=== PATIENT | female | born 1950 | race Caucasian/White ===

== ENCOUNTER 2016-09-14 16:50 | Emergency (ER) | payer MEDICARE ==
[~2016-09-14] VITALS: Ht 163.8 cm; Wt 96.2 kg
[2016-09-14] MEDS ORDERED: MORPHINE SULFATE 10 MG/ML VIAL. IM ONE (18:30)
[2016-09-14] MEDS ORDERED: DEXAMETHASONE SOD PHOS 20 MG/5 ML VIAL. IM ONE (18:30)
[2016-09-14] MEDS ORDERED: DIAZEPAM 5 MG TABLET PO ONE (18:30)
[2016-09-14] MEDS ORDERED: KETOROLAC TROMETHAMINE 60 MG/2 ML SYRINGE. IM ONE (18:30)
[2016-09-14] MEDS ORDERED: HYDR-2762 PO (18:34)
[2016-09-14] MEDS ORDERED: DIAZ5TAB PO (18:34)
[2016-09-14] MEDS ORDERED: METH4TAB2 PO (18:34)
--- NOTE | 2016-09-14 18:35 | PHYS DOC ---
Adult General Chief Complaint Chief Complaint: BACK PAIN OR INJURY HPI HPI Patient is a 66 year old female who presents today complaining of moderate left low back pain that began a couple days ago when she was turning in bed. Patient denies any known injury. She states she has history of back pain and has tried taking hydrocodone with no relief. Patient denies any loss of bowel/ bladder function or pain radiating to the right of the left lower extremity. Review of Systems Review of Systems Constitutional: Denies fever or chills [] Eyes: Denies change in visual acuity, redness, or eye pain [] Musculoskeletal: Back pain Integument: Denies rash or skin lesions [] Neurologic: Denies headache, focal weakness or sensory changes [] Endocrine: Denies polyuria or polydipsia [] Current Medications Current Medications Current Medications Medications (Trade) Dose Ordered Sig/Roney Start Time Stop Time Status Last Admin Dose Admin Dexamethasone Sodium Phosphate (Decadron) 10 mg 1X ONCE 09/14/16 18:30 09/14/16 18:34 DC Diazepam (Valium) 5 mg 1X ONCE 09/14/16 18:30 09/14/16 18:34 DC Ketorolac Tromethamine (Toradol Im) 60 mg 1X ONCE 09/14/16 18:30 09/14/16 18:34 DC Morphine Sulfate 5 mg 1X ONCE 09/14/16 18:30 09/14/16 18:34 DC Allergies Allergies Allergies Coded Allergies Type Severity Reaction Last Updated Verified lisinopril Allergy Mild 09/14/16 Yes sumatriptan Allergy Unknown 09/14/16 Yes Physical Exam Physical Exam Constitutional: Well developed, well nourished, no acute distress, non-toxic appearance. [] Abdomen: Bowel sounds normal, soft, no tenderness, no masses, no pulsatile masses. [] Skin: Warm, dry, no erythema, no rash. [] Back: Diffuse tenderness to paraspinal muscles of the right low lumbar region no midline tenderness, no CVA tenderness. Positive right leg straight raises. Extremities: No tenderness, no cyanosis, no clubbing, ROM intact, no edema. [] Neurologic: Alert and oriented X 3, normal motor function, normal sensory function, no focal deficits noted. [] Psychologic: Affect normal, judgement normal, mood normal. [] EKG EKG [] Radiology/Procedures Radiology/Procedures [] Course & Med Decision Making Course & Med Decision Making Pertinent Labs and Imaging studies reviewed. (See chart for details) Patient is in the ED with back pain with sciatica. She has tried hydrocodone with no relief. I give her morphine, Decadron, Toradol, and vitamin the ED. Discharge her with short supply of hydrocodone 7.5 mg, Valium, and Medrol Dosepak. She has an appointment with her PCP on Friday. She was provided return precautions and discharged in stable condition. Dragon Disclaimer Dragon Disclaimer This electronic medical record was generated, in whole or in part, using a voice recognition dictation system. Departure Departure Impression: Primary Impression: Back pain Additional Impression: Sciatica, right side Disposition: HOME, SELF-CARE Condition: STABLE Referrals: UNKNOWN PCP NAME (PCP) Follow-up with your doctor on Friday as scheduled Patient Instructions: Back Pain, Adult Additional Instructions: You were seen for back pain. Take the prescribed medicines as ordered. Follow- up with your doctor on Friday. You can apply heat to your back or ice. Come back to the ED for worsening condition or if you have any loss of bowel/bladder function. Scripts Hydrocodone Bit/Acetaminophen (Hydrocodone-Apap 7.5-325 )1 Each Tablet1-2 Tab PO PRN Q6HRS PRN PAIN #20 TAB Ref 0 Prov:MARI MADSEN APRN 09/14/16 Methylprednisolone (Medrol)4 Mg Tab.ds.pk1 Pkg PO UD #1 PKG Prov:MARI MADSEN APRN 09/14/16 Diazepam (Valium)5 Mg Tablet5 Mg PO Q8HRS PRN MUSCLE PAIN #15 TAB Prov:MARI MADSEN APRN 09/14/16 Problem Qualifiers Primary Impression: Back pain Back pain location: low back pain Chronicity: acute Back pain laterality: right Sciatica presence: with sciatica Sciatica laterality: sciatica of right side Qualified Code: M54.41 - Lumbago with sciatica, right side MARI MADSEN APRN Sep 14, 2016 18:35
[2016-09-14 18:42] VITALS: BP 206/84
== END 2016-09-14 18:55 | disposition home or self-care (01) ==
LOC: ER 16:50
DX: M54.41 Lumbago with sciatica, right side (principal); Z88.8 Allergy status to other drugs, medicaments and biological substances
CPT/HCPCS: 96372; 99284; J1100; J1885; J2270